=== PATIENT | female | born 1995 | race Caucasian/White ===

== ENCOUNTER 2020-12-31 21:35 | Inpatient (IN) | payer OTHER ==
[2020-12-31] MEDS ORDERED: BUTORPHANOL TARTRATE 1 MG/ML VIAL IVPB PRN (23:19)
[2020-12-31] MEDS ORDERED: PROMETHAZINE HCL 25 MG/1 ML VIAL IVPUSH ONE (23:19)
[2020-12-31] MEDS ORDERED: ELECTROLYTE-148 SOLN 1,000 ML IV SCH (23:30)
[2020-12-31] MEDS ORDERED: CITRIC ACID/SODIUM CITRATE 30 ML UNIT-DOSE CUP PO ONE (23:38)
[2021-01-01 00:13] LABS: BASO % 0.3 % (0-2.0); EOS % 0.7 % (0-4.5); HEMATOCRIT 33.9 % (32.4-45.2); HEMOGLOBIN 11.1 GM/dL (10.7-15.3); LYMPH % 17.4 % (8-40); MCH 27.3 pg (25.7-33.7); MCHC 32.7 g/dl (32.0-36.0); MEAN CELL VOLUME 83.5 fl (80-96); MEAN PLT VOLUME 8.6 fl (7.5-11.1); MONO % 6.9 % (3.8-10.2); NEUT % 74.7 % (42.8-82.8); PLATELET COUNT 277 10^3/uL (134-434); RBC 4.06 M/mm3 (3.60-5.2); RDW 16.5 % (11.6-15.6); WHITE BLOOD COUNT 14.8 K/mm3 (4.0-10.0)
[2021-01-01 00:33] VITALS: BMI 40.2
[2021-01-01 00:41] LABS: CALCIUM 8.7 mg/dL (8.5-10.1)
[2021-01-01 00:42] LABS: BLOOD UREA NITROGEN 9.6 mg/dL (7-18)
[2021-01-01 00:44] LABS: INR 0.91 (0.83-1.09); PROTHROMBIN TIME (PATIENT) 11.2 SEC (9.7-13.0)
[2021-01-01 00:45] LABS: CREATININE 0.5 mg/dL (0.55-1.3)
[2021-01-01 00:47] LABS: ACTIVATED PTT 25.2 SECONDS (25.2-36.5)
[2021-01-01] MEDS ORDERED: OXYTOCIN 20 UNITS in 0.9% NS 20 UNIT/1,000 ML INFUS.BAG IV ONE ×3 (06:10→11:26)
[2021-01-01] MEDS ORDERED: morphine SULFATE/PF 0.5 MG/ML (2cc Syringe - QUVA) ONE (06:14)
[2021-01-01] MEDS ORDERED: PHENYLEPHRINE HCL 10 MG/1 ML SINGLE DOSE VIAL ONE (06:28)
[2021-01-01] MEDS ORDERED: ONDANSETRON 4 MG/2 ML VIAL ONE (06:43)
[2021-01-01] MEDS ORDERED: MIDAZOLAM HCL 2 MG/2 ML SINGLE DOSE VIAL ONE (06:45)
[2021-01-01] MEDS ORDERED: ONDANSETRON 4 MG/2 ML VIAL IVPUSH PRN (06:54)
[2021-01-01] MEDS ORDERED: morphine SULFATE/PF 0.5 MG/ML (2cc Syringe - QUVA) EP ONE (06:54)
[2021-01-01 08:11] LABS: CORD BASE EXCESS -2.2 mmol/L (0-2); CORD HCO3 23.8 mmHg (20-29); CORD PCO2 45.1 mmHg (30-78); CORD pH 7.34 (7.14-7.44)
[2021-01-01 08:13] LABS: CORD HCO3 24.3 mmHg (20-29); CORD PCO2 51.2 mmHg (30-78); CORD pH 7.294 (7.14-7.44)
[2021-01-01] MEDS ORDERED: BENZOCAINE 28 GM HEMORRHOIDAL OINTMENT TP PRN (08:36)
[2021-01-01] MEDS ORDERED: WITCH HAZEL 50% (TUCKS) 40 PAD/JAR PAD TP PRN (08:36)
[2021-01-01] MEDS ORDERED: METHYLERGONOVINE MALEATE 0.2 MG/1 ML AMP IM PRN (08:36)
[2021-01-01] MEDS ORDERED: diphenhydrAMINE HCL 25 MG CAPSULE (FP) PO PRN (08:36)
[2021-01-01] MEDS ORDERED: BENZOCAINE 20% 57 GM BOTTLE TP PRN (08:36)
[2021-01-01] MEDS ORDERED: IBUPROFEN 800 MG/8 ML IJ IVPB ONE (08:56)
[2021-01-01] MEDS: IBUPROFEN 800 MG/8 ML IJ IVPB PRN ×2 (09:05→14:53)
[2021-01-01] MEDS: OXYTOCIN 20 UNITS in 0.9% NS 20 UNIT/1,000 ML INFUS.BAG IV SCH (09:05)
[2021-01-01] MEDS: ACETAMINOPHEN 325 MG TABLET (FP) PO PRN (20:16)
[2021-01-01] MEDS: IBUPROFEN 600 MG TABLET (FP) PO PRN (20:16)
[2021-01-01] MEDS: oxyCODONE HCL 5 MG TABLET PO PRN (23:01)
[2021-01-02] MEDS: ACETAMINOPHEN 325 MG TABLET (FP) PO PRN ×4 (06:01→23:45)
[2021-01-02] MEDS: IBUPROFEN 600 MG TABLET (FP) PO PRN ×4 (06:01→23:46)
[2021-01-02 08:01] LABS: HEMATOCRIT 33.2 % (32.4-45.2); HEMOGLOBIN 10.6 GM/dL (10.7-15.3); MCH 26.9 pg (25.7-33.7); MEAN PLT VOLUME 8.3 fl (7.5-11.1); PLATELET COUNT 243 10^3/uL (134-434); RBC 3.94 M/mm3 (3.60-5.2); RDW 16.8 % (11.6-15.6)
[2021-01-02] MEDS ORDERED: BISACODYL 10 MG SUPP.RECT PR PRN (08:36)
[2021-01-02] MEDS: SIMETHICONE 80 MG TAB.CHEW (FP) PO PRN ×3 (12:00→23:45)
[2021-01-02] MEDS: oxyCODONE HCL 5 MG TABLET PO PRN (13:32)
[2021-01-02] MEDS: SENNOSIDES/DOCUSATE COMBO (SENNA PLUS) TABLET (UD) PO PRN (23:48)
[2021-01-03] MEDS: oxyCODONE HCL 5 MG TABLET PO PRN ×3 (08:12→21:16)
[2021-01-03] MEDS: IBUPROFEN 600 MG TABLET (FP) PO PRN ×2 (08:13→12:26)
[2021-01-03] MEDS: SIMETHICONE 80 MG TAB.CHEW (FP) PO PRN ×3 (08:19→21:33)
[2021-01-03] MEDS: OXYTOCIN 20 UNITS in 0.9% NS 20 UNIT/1,000 ML INFUS.BAG IV SCH (09:14)
[2021-01-03] MEDS: ACETAMINOPHEN 325 MG TABLET (FP) PO PRN ×2 (12:27→21:16)
[2021-01-03] MEDS: SENNOSIDES/DOCUSATE COMBO (SENNA PLUS) TABLET (UD) PO PRN (21:34)
[2021-01-04] MEDS: oxyCODONE HCL 5 MG TABLET PO PRN (01:48)
[2021-01-04] MEDS: ACETAMINOPHEN 325 MG TABLET (FP) PO PRN ×2 (01:48→06:16)
[2021-01-04] MEDS: IBUPROFEN 600 MG TABLET (FP) PO PRN ×3 (01:48→10:21)
[2021-01-04 07:19] LABS: HEMATOCRIT 32.5 % (32.4-45.2); HEMOGLOBIN 10.9 GM/dL (10.7-15.3); MCH 27.8 pg (25.7-33.7); MCHC 33.4 g/dl (32.0-36.0); MEAN CELL VOLUME 83.1 fl (80-96); PLATELET COUNT 270 10^3/uL (134-434); RBC 3.91 M/mm3 (3.60-5.2); RDW 16.5 % (11.6-15.6); WHITE BLOOD COUNT 11.3 K/mm3 (4.0-10.0)
[2021-01-04] MEDS: SIMETHICONE 80 MG TAB.CHEW (FP) PO PRN (10:36)
[2021-01-04 10:49] VITALS: BP 117/68; PULSE 79; TEMP 98
== END 2021-01-04 16:45 | disposition home or self-care (01) | DRG 540 ==
LOC: JLDR 21:35 → J3W 01-01 14:00
PROVIDERS: ADMIT Obstetrics & Gynecology; ATTEND Obstetrics & Gynecology
PROC: 10D00Z1 Extraction of Products of Conception, Low, Open Approach (ICD-10-PCS; principal; 2021-01-01)
DX: O36.63X0 Maternal care for excessive fetal growth, third trimester, not applicable or unspecified (principal); O99.214 Obesity complicating childbirth; Z3A.39 39 weeks gestation of pregnancy; Z37.0 Single live birth
CPT/HCPCS: 36415; 36600; 80048; 82803; 85025; 85027; 85610; 85730; 86780; 86850; 86900; 86901; C9803; U0003; U0005

== ENCOUNTER 2022-04-19 06:50 | Inpatient (IN) | payer OTHER ==
[2022-04-19] MEDS ORDERED: ELECTROLYTE-148 SOLN 1,000 ML IV SCH (08:00)
[2022-04-19] MEDS ORDERED: CITRIC ACID/SODIUM CITRATE 30 ML UNIT-DOSE CUP PO ONE (08:00)
[2022-04-19] MEDS: ELECTROLYTE-148 SOLN 1,000 ML IV SCH (08:30)
[2022-04-19 09:04] VITALS: BMI 38.5
[2022-04-19] MEDS ORDERED: ONDANSETRON 4 MG/2 ML VIAL IVPUSH PRN (10:53)
[2022-04-19] MEDS ORDERED: morphine SULFATE/PF 1 MG/2 ML (2cc Syringe - QUVA) EP ONE (10:53)
[2022-04-19] MEDS ORDERED: morphine SULFATE/PF 1 MG/2 ML (2cc Syringe - QUVA) ONE (12:19)
[2022-04-19] MEDS ORDERED: ceFAZolin SODIUM 1 GM VIAL ONE (12:20)
[2022-04-19] MEDS ORDERED: SODIUM CHLORIDE 0.9% P/F 10 ML VIAL IJ ONE (12:20)
[2022-04-19] MEDS ORDERED: PHENYLEPHRINE HCL 10 MG/1 ML SINGLE DOSE VIAL ONE (12:38)
[2022-04-19] MEDS ORDERED: OXYTOCIN 10 UNITS/ML VIAL ONE ×2 (12:49→13:28)
[2022-04-19] MEDS ORDERED: MIDAZOLAM HCL 2 MG/2 ML SINGLE DOSE VIAL ONE (13:03)
[2022-04-19] MEDS ORDERED: ONDANSETRON 4 MG/2 ML VIAL ONE (13:04)
[2022-04-19] MEDS ORDERED: METHYLERGONOVINE MALEATE 0.2 MG/1 ML AMP IM PRN (13:20)
[2022-04-19 13:55] LABS: CORD HCO3 24.6 mmHg (20-29); CORD PCO2 68.9 mmHg (30-78)
[2022-04-19 13:58] LABS: CORD BASE EXCESS -7.4 mmol/L (0-2); CORD HCO3 20.7 mmHg (20-29); CORD PCO2 51.5 mmHg (30-78); CORD pH 7.222 (7.14-7.44)
[2022-04-19] MEDS ORDERED: IBUPROFEN 800 MG/8 ML IJ IVPB ONE (14:44)
[2022-04-19] MEDS: IBUPROFEN 800 MG/8 ML IJ IVPB PRN (14:46)
[2022-04-19] MEDS: OXYTOCIN 20 UNITS in 0.9% NS 20 UNIT/1,000 ML INFUS.BAG IV SCH (20:52)
[2022-04-19] MEDS: FERROUS SO4 325 MG TABLET (FP) PO SCH (23:49)
[2022-04-20] MEDS ORDERED: oxyCODONE HCL 5 MG TABLET PO PRN (01:21)
[2022-04-20] MEDS: OXYTOCIN 20 UNITS in 0.9% NS 20 UNIT/1,000 ML INFUS.BAG IV SCH ×3 (04:46→20:01)
[2022-04-20] MEDS: SIMETHICONE 80 MG TAB.CHEW (FP) PO PRN ×3 (05:22→22:04)
[2022-04-20] MEDS: IBUPROFEN 600 MG TABLET (FP) PO PRN ×3 (05:22→22:05)
[2022-04-20] MEDS: IBUPROFEN 800 MG/8 ML IJ IVPB PRN (08:40)
[2022-04-20 09:49] LABS: BASO % 0.3 % (0-2.0); EOS % 0.5 % (0-4.5); HEMATOCRIT 32.3 % (32.4-45.2); HEMOGLOBIN 10.5 GM/dL (10.7-15.3); LYMPH % 16.9 % (8-40); MCH 27.3 pg (25.7-33.7); MCHC 32.5 g/dl (32.0-36.0); MEAN CELL VOLUME 83.9 fl (80-96); MEAN PLT VOLUME 8.7 fl (7.5-11.1); MONO % 5.7 % (3.8-10.2); NEUT % 76.6 % (42.8-82.8); PLATELET COUNT 237 10^3/uL (134-434); RBC 3.84 M/mm3 (3.60-5.2); RDW 15.5 % (11.6-15.6); WHITE BLOOD COUNT 13.1 K/mm3 (4.0-10.0)
[2022-04-20] MEDS: PRENATAL VITAMINS W/ FOLIC ACID TABLET (FP) PO SCH (10:27)
[2022-04-20] MEDS: FERROUS SO4 325 MG TABLET (FP) PO SCH ×2 (10:27→22:04)
[2022-04-20] MEDS ORDERED: BISACODYL 10 MG SUPP.RECT RC PRN (13:21)
[2022-04-20] MEDS: ACETAMINOPHEN 325 MG TABLET (FP) PO PRN (18:18)
[2022-04-20] MEDS: ELECTROLYTE-148 SOLN 1,000 ML IV SCH (20:01)
[2022-04-21] MEDS: SIMETHICONE 80 MG TAB.CHEW (FP) PO PRN ×4 (04:27→19:19)
[2022-04-21] MEDS: ACETAMINOPHEN 325 MG TABLET (FP) PO PRN (04:27)
[2022-04-21] MEDS: oxyCODONE HCL 5 MG TABLET PO PRN ×2 (08:39→14:34)
[2022-04-21] MEDS: PRENATAL VITAMINS W/ FOLIC ACID TABLET (FP) PO SCH (09:24)
[2022-04-21] MEDS: FERROUS SO4 325 MG TABLET (FP) PO SCH ×2 (09:24→21:39)
[2022-04-21 11:31] LABS: POC NITRAZINE POS
[2022-04-21] MEDS: IBUPROFEN 600 MG TABLET (FP) PO PRN (19:19)
[2022-04-22] MEDS: IBUPROFEN 600 MG TABLET (FP) PO PRN (07:57)
[2022-04-22] MEDS: SIMETHICONE 80 MG TAB.CHEW (FP) PO PRN (07:57)
[2022-04-22 08:36] LABS: BASO % 0.2 % (0-2.0); EOS % 1.4 % (0-4.5); HEMATOCRIT 33.5 % (32.4-45.2); HEMOGLOBIN 11.2 GM/dL (10.7-15.3); MCHC 33.4 g/dl (32.0-36.0); MEAN CELL VOLUME 83.8 fl (80-96); MEAN PLT VOLUME 8.3 fl (7.5-11.1); MONO % 5.4 % (3.8-10.2); PLATELET COUNT 270 10^3/uL (134-434); RDW 15.6 % (11.6-15.6); WHITE BLOOD COUNT 11.3 K/mm3 (4.0-10.0)
[2022-04-22 10:31] VITALS: BP 125/72; PULSE 88; RESP 18; TEMP 98.4
[2022-04-22] MEDS: PRENATAL VITAMINS W/ FOLIC ACID TABLET (FP) PO SCH (10:32)
[2022-04-22] MEDS: FERROUS SO4 325 MG TABLET (FP) PO SCH (10:32)
== END 2022-04-22 15:35 | disposition home or self-care (01) | DRG 540 ==
LOC: JDEL 06:50 → JLDR 07:40 → J3W 15:19
PROVIDERS: ADMIT Obstetrics & Gynecology; ATTEND Obstetrics & Gynecology
PROC: 10D00Z1 Extraction of Products of Conception, Low, Open Approach (ICD-10-PCS; principal; 2022-04-19)
PROC: 0UT70ZZ Resection of Bilateral Fallopian Tubes, Open Approach (ICD-10-PCS; 2022-04-19)
DX: O42.02 Full-term premature rupture of membranes, onset of labor within 24 hours of rupture (principal); O34.211 Maternal care for low transverse scar from previous cesarean delivery; Z30.2 Encounter for sterilization; Z3A.39 39 weeks gestation of pregnancy; Z37.0 Single live birth
CPT/HCPCS: 36415; 36600; 59025; 80048; 82803; 83986-QW; 85025; 85610; 85730; 86780; 86850; 86900; 86901; 88305-TC; 88307-TC; C9803-CS; U0003; U0005